=== PATIENT | female | born 1995 | race African-American/Black ===

== ENCOUNTER 2024-08-13 18:06 | Emergency (ER) | payer BC, SELFPAY ==
--- OUTSIDE RECORDS SUMMARY | 2024-08-13 18:09 | XMS_ITS | Clinical Summary ---
Author Organization [facility] Address [address] [address] Care Team Providers Care Java Lead Name Role Phone Leela Alonzo Primary Care Provider + Source Comments [facility],non-owned Affiliates and Associated Physician Practices is amultiple site organization consisting of ambulatory clinics and hospital sitesin [place], [place], [place] and [place]. This disclosure is being madepursuant to the Care Everywhere program and may not contain all information available regarding this patient. Last updated 18.[facility] Allergies Active Allergy Reactions Criticality Noted Date Comments Other-See Past Updates Swelling Medium 06/29/2012 ragweed Medications * Be aware that medications may not be up to date on this document. Alwaysverify current medications with the patient. Medication Sig Dispensed Refills Start Date End Date Status doxycycline hyclate (VIBRAMYCIN) 100 MG capsule TK 1 C PO BID FOR 10 DAYS 0 01/28/2019 Active escitalopram (LEXAPRO) 10 MG tablet Take 10 mg by mouth once daily Active benzonatate (TESSALON) 200 MG capsule Take 1 capsule by mouth 3 times daily as needed for Cough 30 capsule 06/03/2019 Active Active Problems Problem Noted Date Diagnosed Date Hip pain 03/23/2012 Neck pain 03/23/2012 Social History Tobacco Use Types Packs/Day Years Used Date Smoking Tobacco: Never Assessed Sex and Gender Information Value Date Recorded Sex Assigned at Not on file Gender Identity Not on file Sexual Orientation Not on file Plan of Treatment Health Maintenance Due Date Last Done Comments PAP SMEAR 1994 HIV SCREENING 2009 HEPATITIS C SCREENING 09/12/2012 DTAP/TDAP/TD VACCINES (1 - Tdap) 2013 HEPATITIS B VACCINE (1 of 3 - 19+ 3-dose series) 2013 COVID-19 VACCINE (1 - 2023-2 5 season) 2024 INFLUENZA VACCINE (#1) 2024 DEPRESSION SCREENING 05/16/2024 ZOSTER VACCINE (1 of 2) 2044 HIB VACCINE Aged Out No longer eligi ble based on patient's age to complete this topic HPV VACCINE Aged Out No longer eligi ble based on patient's age to complete this topic MENINGOCOCCAL (Group B) VACC INE SHARED DECISION-MAKING Aged Out No longer eligibl e based on patient's age to complete this topic MENINGOCOCCAL GROUPS A/C/Y/W VACCINE Aged Out No longer eligible b ased on patient's age to complete this topic PNEUMOCOCCAL VACCINE Aged Out No long er eligible based on patient's age to complete this topic Care Teams Java Lead Relationship Specialty Start Date End Date Leela Alonzo DO [address] [place] [address] PCP - General Pediatrics 03/17/12
--- OUTSIDE RECORDS SUMMARY | 2024-08-13 18:09 | XMS_ITS | Clinical Summary ---
Author Organization [facility] [employer] [place] Address [address] [place] [place] [address] Care Team Providers Care Sap Pi Architect Name Role Phone Unavailable Primary Care Provider Unavailabl e Allergies No known active allergies Medications etonogestrel (NEXPLANON) 68 mg Implant Left arm Active fluticasone propionate (FLONASE) 50 mcg/spray [place], Suspension nasal inhalerIndicati ons:Seasonal allergic rhinitis due to other allergic trigger Flonase 2 sprays each nostril twice a day x 7-10 days then once a day 16 Gram 4 08/02/2019 Active montelukast (Singulair) 10 mg tabletIndicatio ns:Seasonal allergic rhinitis due to other allergic trigger Take 1 Tablet (10 mg) by mouth daily at bedtime. 90 Tablet 1 08/02/2019 Active predniSONE (DELTASONE) 10 mg tabletIndicatio ns:Ganglion cyst of wrist, right Take three tablets at one time daily for seven days 30 Tablet 11/12/2019 Active Active Problems Problem Noted Date Diagnosed Date Situational depression 11/25/2017 Anxiety state 11/25/2017 Immunizations Immunization Administration Dates Next Due (ADACEL/BOOSTRIX)(10 YR UP) TDAP VACCINE, 0.5ML, IM 12/08/2016 (GARDASIL)(9-45 YRS) HUMAN P APILLOMAVIRUS VACCINE, TYPES 6, 11, 16, 18, QUADRIVALENT (4VHPV), 3 DOSE, IM 05/16/2008 Family History Medical History Relation Name Comments No Known Problems Daughter Sudden Father No Known Problems Half-Sister 1 No Known Problems Half-Sister 2 Unknown Maternal Grandfather Hypertension Maternal Grandmother Sleep Disorder Mother Kidney Disease Paternal Grandfather No Known Problems Paternal Grandmother No Known Problems Sister 1 No Known Problems Sister 2 No Known Problems Son Relation Name Status Comments Daughter Alive Father Half-Sister 1 Alive Half-Sister 2 Alive Maternal Grandfather Maternal Grandmother Alive Mother Alive Paternal Grandfather Alive Paternal Grandmother Alive Sister 1 Alive Sister 2 Alive Son Alive Social History Tobacco Use Types Packs/Day Years Used Date Smoking Tobacco: Never Smokeless Tobacco: Never Comments:Never Alcohol Use Standard Drinks/Week Comments Not Currently 0 (1 standard drink = 0.6 oz pur e alcohol) occassionally Comments No Sex and Gender Information Value Date Recorded Sex Assigned at Not on file Legal Sex Female 2:10 PM CDT Gender Identity Not on file Sexual Orientation Not on file Last Filed Vital Signs Vital Sign Reading Time Taken Comments Blood Pressure 122/74 11/12/2019 1:10 PM CDT Pulse 90 11/12/2019 1:10 PM CDT Temperature 36.8 C (98.2 F) 11/12/2019 1:10 PM CDT Respiratory Rate 18 11/12/2019 1:10 PM CDT Oxygen Saturation 99% 11/12/2019 1:10 PM CDT Inhaled Oxygen Concentration - - Weight 89.8 kg (198 lb) 11/12/2019 1:10 PM CDT Height 162.6 cm (5' 4 ) 11/12/2019 1:10 PM CDT Body Mass Index 33.99 11/12/2019 1:10 PM CDT Plan of Treatment Health Maintenance Due Date Last Done Comments HPV VACCINES (2 - 2-dose series) 11/13/2008 05/16/2008, 05/16/2008 (Previously completed) HEPATITIS B VACCINES (1 of 3 - 19+ 3-dose series) 2013 PAP SMEAR 09/18/2015 CERVICAL CANCER SCREENING 04/02/2022 PAP SMEAR 04/02/2022 04/02/2019 (Previously completed), 08/14/2017 (Previously completed) INFLUENZA VACCINE (#1) 2023 DTAP/TDAP/TD VACCINES (2 - T d or Tdap) 12/08/2026 12/08/2016 PNEUMOCOCCAL VACCINE 0-49 YEARS Aged Out No longer eligible b ased on patient's age to complete this topic
--- OUTSIDE RECORDS SUMMARY | 2024-08-13 18:09 | XMS_ITS | Patient Health Record ---
Author Organization [facility] Address [address] [place] [address] Care Team Providers Care Chauffeur [employer]ine Name Role Phone Maile Ribera Primary Care Provider [phone] Allergies No Known Allergies Reason For Referral No Information Medications Medication SIG (Take, Route, Frequency, Duration) Notes Start Date End Date Status ARIPiprazole 5 MG 1 tablet Orally Once a day for 30 day(s) Active hydrOXYzine Pamoate 25 MG 1 capsule as n eeded Orally Three times daily for 30 day(s) Active Social History Tobacco Use: Social History Observation Description Date Details (start date - stop date) Never Smoker NA - NA Dont use, Tobacco Use/Smoking Question Answer Notes Are you a nonsmoker Problems Problem Type SNOMED Code ICD Code Onset Dates Problem Status W/U Status Risk Notes Problem Generalized anxiety disorder (57823621) Generalized anxiety disorder (F41.1) Active confirmed Problem Mood disorder (34160876) Mood disorder (F39) Active confirmed Problem Recurrent major depression (43039009) Major depression, recurrent (F33.9) Active confirmed Problem Cannabis abuse (13826460) Cannabis abuse (F12.10) Active confirmed Plan Of Treatment No Information Insurance Providers Payer Name Payer Address Payer Phone Subscriber Number Group Number Insured Name Patient Relationship to Insured Coverage Start Date Coverage End Date [facility] [address] [place] [phone] [id number] Ashleigh Pat Self - patient is the insured 2 [facility] [address] [place] [address] [phone] [id number] Ashleigh Pat Self - patient is the insured [address] [phone] [id number] Ashleigh Pat Self - patient is the insured 2 [facility] [address] [place] [phone] [id number] Ashleigh Pat Self - patient is the insured 2 Medical (General) History Surgical History Surgery Date(Month/Year) Hospitalization History Reason Date(Month/Year) Smita DAMIAN Jan 2022
--- OUTSIDE RECORDS SUMMARY | 2024-08-13 18:12 | XMS_ITS | Clinical Summary ---
Author Organization [facility] Address [address] [place] [address] Phone Care Team Providers Care Store Lead Name Role Phone Ashley Solitario MD Primary Care Provide r Medications escitalopram (LEXAPRO) 10 MG Tablet Take 10 mg by mouth daily. Active Active Problems Problem Noted Date Diagnosed Date Major depressive disorder, s ross episode, moderate with anxious distress 11/23/2017 Family History Medical History Relation Name Comments Bipolar Disorder Mother Relation Name Status Comments Mother Social History Tobacco Use Types Packs/Day Years Used Date Smoking Tobacco: Never Smokeless Tobacco: Never Alcohol Use Standard Drinks/Week Comments Yes 0 (1 standard drink = 0.6 oz pure alcohol) 4 out of 7 days, 1/2 to one bottle of wine AUDIT-C Answer Date Recorded Q1: How often do you have a drink containing alc ohol? 2-4 times a month 03/10/2020 Average Number of Drinks Not on file 020 Q3: How often do you have si x or more drinks on one occasion? Weekly 03/10/2020 PHQ-2 Answer Date Recorded Total Score - Questions 1-9 0 08/2020 Sexually Active Control Partners Comments Yes Male Comments Unknown Sex and Gender Information Value Date Recorded Sex Assigned at Not on file Legal Sex Female 10:22 PM CDT Gender Identity Not on file Sexual Orientation Not on file Plan of Treatment Health Maintenance Due Date Last Done Comments Hepatitis C Virus (HCV) Screening 1995 Pap Smear 09/18/2015 Influenza Immunization (#1) 01/15/202402/14, 03/24/2011, 02/18/2010, Additional history exists SARS-COV-2 Immunization ( season) 2024 09/19/2020, 08/23/2020 Respiratory Syncytial Virus (RSV) Immunization (Adult) (1 - 1-dose 75+ series) 2069 Hepatitis B Immunization Completed 998, 1995, 1995 Human Papillomavirus (HPV) Immunization Discontinued 05/31/2008, 02/08/2008, 01/25/2007 Meningococcal Immunization (ACWY) Completed 06/29/2012, 02/08/2008 DTaP/Tdap/Td Immunization Discontinued 2016, 01/14/2006, 05/11/1999, Additional history exists TdaP Immunization Completed 12/08/2016 Pneumococcal Immunization Combined Aged Out No longer eligible based on patient's age to complete this topic Rotavirus Immunization Aged Out No lo nger eligible based on patient's age to complete this topic Goals Goal Patient Goal Type Associated Problems Recent Progress Patient-Stated? Author Behavioral Health Behavioral Health On track(2020 5:18 PM INKER) Yes Vishnu Kaiser LCSW Note: I want to feel less depressed and less anxious Goal Reviewed with: patient Readiness to change: Ready to change Department associated with goal: [facility] Steps to achieve goal: Patient counseled on deep breathing and other relaxation techniques Patient counseled on coping with depression, including healthy self-care Patient encouraged to ask new PCP about medication Behavioral Health Behavioral Health On track(2020 5:18 PM INKER) No Vishnu Kaiser LCSW Note: Goal: Patient to be able to report decreased anxiety/depression to tolerable levels Goal Reviewed with: patient Readiness to change: Ready to change Department associated with goal: [facility] Steps to achieve goal: Patient counseled on healthy communication and problem-solving skills for use with boyfriend Patient counseled on importance of a healthy daily routine, including leisure interests and exercise Insurance [employer] CIGNA [place]ICAID [place] Care Teams Store Lead Relationship Specialty Start Date End Date Ashley Solitario MD [address] [place] [address] [place] [id number] PCP - General Family Medicine 06/07/23
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
--- OUTSIDE RECORDS SUMMARY | 2024-08-13 18:12 | XMS_ITS | Clinical Summary ---
Author Organization [facility] Address [address] [place] [address] Care Team Providers Care Accountant Property Name Role Phone No, Physician Primary Care Provider [phone] Allergies No known active allergies Medications etonogestrel [...] 8,04/21/1995,02/24/1995, 1994 Td, adsorbed 01/14/2006 Tdap 12/08/2016 Surgical History Surgery Date Site/Laterality Comments WISDOM TOOTH EXTRACTION [place] teeth extraction OTHER SURGICAL HISTORY 2013 : 3 hr labor Medical History Medical History Date Comments Hx Other Medical ; Comm ents: Precip . FOB #1.; Outcome: Live infant Hx Other Medical ; Comm ents: Current. FOB #2 Family History Medical History Relation Name Comments Other Father Gunshot wound; Cause of : Gunshot wound Heart failure Maternal Grandfather Conges tive heart failure; Cause of : Congestive heart failure Heart attack Maternal Grandmother Myocard ial infarction; Sickle cell trait Mother Sickle shayy l trait; RED 05/21/2016 -Patient tested negative. 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 Labor. GBS positive. Supe rior urethral lac. Last Filed Vital Signs Vital Sign Reading Time Taken Comments Blood Pressure 131/88 05/16/2023 2:06 PM BEER MAKER Pulse 80 05/16/2023 2:06 PM BEER MAKER Temperature 37.1 C (98.8 F) 05/16/2023 11:26 AM BEER MAKER Respiratory Rate 16 05/16/2023 2:06 PM BEER MAKER Oxygen Saturation 100% 05/16/2023 2:06 PM BEER MAKER Inhaled Oxygen Concentration - - Weight 79.4 kg (175 lb) 05/16/2023 11:26 AM BEER MAKER Height 162.6 cm (5' 4 ) 11/25/2022 11:37 AM CDT Body Mass Index 30.04 11/25/2022 11:37 AM CDT Plan of Treatment Health Maintenance Due Date Last Done Comments Depression Screening 1995 Varicella Vaccines (1 of 2 - 13+ 2-dose series) 03/18/2010 Cervical Cancer Screening 04/04/2021 04/04/2020, Regular Well Visit/Exam 18-64 07/14/2022 07/14/2021, 04/04/2020, 04/02/2019, Additional history exists Influenza Vaccine (#1) 2024 2, 03/24/2011, 02/18/2010, Additional history exists DTaP/Tdap/Td Vaccine (7 - Td or Tdap) 12/08/2026 12/08/2016, 01/14/2006, 05/11/1999, Additional history exists Hepatitis B Screening Completed 05/30/1997 , 1994, 1994 HPV Vaccines Completed 05/31/2008, 01/15, 01/25/2007 Hepatitis C Screening Completed 05/19/2016, 014 Pneumococcal vaccine <65 Aged Out No longer eligible based on patient's age to complete this topic Procedures Procedure Name Priority Date/Time Associated Diagnosis Comments PAP AND HIGH RISK HPV, REFLEX TO GENOTYPING Routine 04/04/2020 10:00 AM BEER MAKER HEP C AB W/RFL HCV Routine 05/19/2016 2: 52 PM BEER MAKER from Last 3 Months or Most Recently Relevant to Health Maintenance Results * Pap and High Risk HPV, reflex to Genotyping (04/04/2020 10:00 AM BEER MAKER) 04/04/2020 10:0 0 AM BEER MAKER 04/04/2020 10:00 AM BEER MAKER Narrative 04/15/2020 9:59 AM BEER MAKER [facility] Department of Pathology [address] [place] [id number] Final Report Patient Name: ASHLEIGH PAT Address: [address] [place], [place] [id number] Gender: F : 1995 (Age: 24) Service: Laboratory Location: Lab Hospital #: [id number] Patient Type: Ref Lab Taken: 04/04/2020 Received: 04/04/2020 Accessioned:: [...] determined by the Surgical Pathology Department at [facility] as part of an ongoing data quality consultant program and in compliance with federally mandated [...] characteristics determined by the Surgical Pathology Department [facility]. It has not been cleared or approved by the U. S. Food and Drug Administration. Ingris Izquierdo NP LAB CYTOLOGY ORDERABLES F inal Result * HEP C AB W/RFL HCV (05/19/2016 2:52 PM BEER MAKER) SIGNAL TO CUT-OFF 0.02 <1.00 [facility]OR[facility] RES[facility] Comment: [facility] [address] [place] [address] Director: JANETTE LEVINE DO,MPH Hep C Ab NON-REACT MASSIMO NON-REACT MASSIMO [facility] HISTORICAL RESULTS 05/19/2016 2:52 PM BEER MAKER Shannon Mayes MD LAB MICROBIOLOGY - GE NERAL ORDERABLES Final Result [facility]ISTORICAL RESULTS from Last 3 Months or Most Recently Relevant to Health Maintenance Insurance [facility]PPO Address: [address] [address] [place] [address] [facility] Care Teams Accountant Property Relationship Specialty Start Date End Date No, Physician PCP - General 04/18/23
--- NOTE | 2024-08-13 18:16 | ED_ITS ---
HPI - Anxiety General Chief Complaint: Anxiety Stated Complaint: anxiety/dizzy Time Seen by Provider: 08/13/24 18:17 Source: patient, RN notes reviewed and old records reviewed Mode of arrival: ambulatory Limitations: no limitations History of Present Illness HPI narrative: 28-year-old female presents to the [facility] with concerns of having 3 anxiety attacks that she does not feel had any stressors with thumb. States that her heart started racing, felt lightheaded. Patient her is reported to be taking Prozac. Does not take it on a daily basis. Reports that she does take it 4 days a week. Also has had significant thoughts of suicide with no plan. Patient states that suicide weighs very heavy on her mind at times. Related Data Home Medications ?Medication ?Instructions ?Recorded ?Confirmed ?Last Taken ?Type fluoxetine 10 mg capsule mg 08/13/24 Unknown History Allergies Allergy/AdvReac Type Severity Reaction Status Date / Time No Known Allergies Allergy Verified 08/13/24 18:17 Review of Systems Review of Systems: All systems reviewed & are unremarkable except as noted in HPI and below Constitutional: Constitutional: Reports no additional constitutional complain ts ENT: Denies system reviewed and no additional complaints, except as documented Cardiovascular: Cardiovascular: Reports as per HPI, Denies chest pain, Reports rapid heart rate and Denies dyspnea Respiratory: Respiratory: Reports no additional respiratory complaints, Denies chest congestion, Denies cough and Denies dyspnea Musculoskeletal: Musculoskeletal: Reports no additional musculoskeletal complaints Integumentary/Breasts: Skin/Breast: Reports system reviewed and no additional complaints, except as docu Neurologic: Reports as per HPI and Reports dizziness Psychiatric: Psychiatric: Reports as per HPI, Reports anxiety, Denies homicidal ideation and Reports suicidal ideation PMFSH Comments At the time of my signature, I reviewed and agree with the nursing past medical, surgical, social, and family history. There is no relevant family history pertinent to the patient complaint. Exam Const: General: cooperative, healthy appearing, comfortable, no acute distress, well developed, alert and well nourished Nutritional Appearance: well nourished Orientation/consciousness: patient oriented x3 Limitations: no limitations HENMT: Head: normal to inspection Eyes: General: appearance normal, both eyes and all related structures Alignment and Position: alignment normal Neck: Neck: normal visual inspection, full ROM and no meningeal signs Chest: Chest palpation & inspection: normal inspection of the chest Resp: Effort & Inspection: normal respiratory effort and able to speak in complete sentences Cardio: Rate: regular rate Skin: General skin exam: normal color and no rashes or lesions noted Neuro: General: patient oriented x3, gait normal, moves all extremities and no meningeal signs Cognition (Neuro): normal cognition Speech: normal speech Gait exam (Neuro): Normal gait present Extrem: General: normal to inspection, full ROM, capillary refill normal and normal gait Psych: Appearance: grossly normal and well kempt Mental Status: mental status grossly normal Speech and movement: Normal speech and movement present and Clear speech present Affect: Anxious affect present Attitude: cooperative Course Course Level of Care: Express Care Visit Vital Signs Vital signs: Vital Signs Temperature 97.4 F L 08/13/24 18:18 Pulse Rate 62 08/13/24 18:18 Respiratory Rate 16 08/13/24 18:18 Blood Pressure 139/87 08/13/24 18:18 Pulse Oximetry 100 08/13/24 18:18 Oxygen Delivery Room Air 08/13/24 18:18 Temperature 97.4 F L 08/13/24 18:18 Pulse Rate 62 08/13/24 18:18 Respiratory Rate 16 08/13/24 18:18 Blood Pressure 139/87 08/13/24 18:18 Pulse Oximetry 100 08/13/24 18:18 Oxygen Delivery Room Air 08/13/24 18:18 Reviewed Transfer Transfered to: [facility] Transportation: ALS Transfer rationale: Patient with anxiety, thoughts of suicide sending for higher level care Accepting physician: spoke with Trista GODOY, Dr. Ng excepting MDM - Anxiety MDM Narrative Medical decision making narrative: patient sitting comfortably in exam room. Nontoxic, vitals are stable. Patient is tearful patient reports anxiety, 3 significant attacks today heart racing but also verbalizes yesterday she had significant thoughts of suicide. Sending for higher level care EMS called, [facility] notified transfer instructions reviewed with patient All questions have been answered, and the patient deny any further questions Some parts of this dictation were generated by voice recognition software and may contain typographical and/or grammatical inaccuracies. Differential Diagnosis Differential diagnosis: Likely hyperventilation, panic disorder, acute anxiety and other ( suicidal ideation) Critical Care Time Critical Care Time Critical Care Time: No Discharge Plan Discharge Clinical Impression: Anxiety, Suicidal thoughts Patient Disposition: Acute Care Hospital Condition: Stable Patient Language: Citizen Of [place] Prescriptions: No Action fluoxetine 10 mg capsule Follow-up/Referrals: PHYSICIAN NOT ON STAFF,NONSTAFF [Primary Care Provider] -
[2024-08-13 18:18] VITALS: BP 139/87; PULSE 62; RESP 16; TEMP 36.3; O2SAT 100
== END 2024-08-13 18:30 | disposition short-term general hospital (02) ==
PROVIDERS: Emergency Provider Nurse Practitioner
DX: F41.9 Anxiety disorder, unspecified (principal); R45.851 Suicidal ideations
CPT/HCPCS: 99215; G0463